=== PATIENT | female | born 1985 | race Two or more races ===

== ENCOUNTER 2022-11-28 17:34 | Emergency (ER) | payer OTHER ==
[~2022-11-28] VITALS: Ht 167.6 cm; Wt 53.5 kg
--- NOTE | 2022-11-28 19:50 | NUR ---
PT REFUSED ALL MEDICAL TREATMENT, RISK V BENEFITS EXPLAINED TO PATIENT. AWARE.
--- NOTE | 2022-11-28 20:08 | NUR ---
PT IS CLEARED FOR BOOKING. DISCHARGED TO [facility]
[2022-11-28 21:03] VITALS: BP 121/68
== END 2022-11-28 21:03 ==
LOC: ER 17:39
DX: S00.12XA Contusion of left eyelid and periocular area, initial encounter (principal); S00.81XA Abrasion of other part of head, initial encounter; Z02.89 Encounter for other administrative examinations; W19.XXXA Unspecified fall, initial encounter; Y93.89 Activity, other specified; Y92.89 Other specified places as the place of occurrence of the external cause; Y99.8 Other external cause status